=== PATIENT | male | born 1970 | race Caucasian/White ===

== ENCOUNTER 2019-09-05 15:12 | Emergency (ER) | payer BC ==
--- NOTE | 2019-09-05 15:48 | EDM.PDOC ---
ED HPI GENERAL MEDICAL PROBLEM - General Chief Complaint: General Stated Complaint: LT LEG/ARM SWELLING AND NUMBNESS Time Seen by Provider: 09/05/19 15:23 Source of Information: Reports: Patient, Significant Other () History Limitations: Reports: No Limitations - History of Present Illness INITIAL COMMENTS - FREE TEXT/NARRATIVE: Patient is a 48-year-old male who presents to the ED for the evaluation of unilateral leg swelling. 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 Patient states it is not painful, he did not even notice the swelling, he states that it was that noticed the swelling. He states that it does seem to worsens with sitting. He states there is some numbness/tingling associated with this, he also notes that he has been having some numbness and tingling into his left arm as well, this just started today. But he attributes this to his neck pain. Patient denies any sort of history of blood clots or other issues. Further denies any other fever/chills, cough/shortness of breath, nausea/vomiting/diarrhea, or pain anywhere else in his body. Left Leg Pain Score (Numeric/FACES): 2 - Related Data Allergies Allergy/AdvReac Type Severity Reaction Status Date / Time No Known Allergies Allergy Verified 09/05/19 15:23 Home Meds: Home Meds predniSONE 20 mg PO ASDIRECTED #15 tab 09/05/19 [Rx] Past Medical History - Past Health History Medical/Surgical History: Denies Medical/Surgical History - Infectious Disease History Infectious Disease History: Reports: Chicken Pox Social & Family History - Tobacco Use Smoking Status *Q: Never Smoker Second Hand Smoke Exposure: No - Caffeine Use Caffeine Use: Reports: Soda - Recreational Drug Use Recreational Drug Use: No ED ROS GENERAL - Review of Systems Review Of Systems: Comprehensive ROS is negative, except as noted in HPI. ED EXAM, GENERAL - Physical Exam Exam: See Below Exam Limited By: No Limitations General Appearance: Alert, WD/WN, No Apparent Distress Eye Exam: Bilateral Eye: EOMI, Normal Inspection, PERRL Respiratory/Chest: No Respiratory Distress, Lungs Clear, Normal Breath Sounds, No Accessory Muscle Use, Chest Non-Tender Cardiovascular: Normal Peripheral Pulses, Regular Rate, Rhythm, No Murmur Peripheral Pulses: 3+: Dorsalis Pedis (L), Dorsalis Pedis (R) Extremities: Normal Inspection, Normal Range of Motion, Non-Tender, No Pedal Edema, Normal Capillary Refill. No: Huseyin's Sign Neurological: Alert, Oriented, CN II-XII Intact (grossly), Normal Cognition, No Motor/Sensory Deficits Psychiatric: Normal Affect, Normal Mood Skin Exam: Warm, Dry, Intact, Normal Color, No Rash Course - Vital Signs Last Recorded V/S: Last Vital Signs Temp 98.8 F 09/05/19 15:24 Pulse 74 09/05/19 15:24 Resp 16 09/05/19 15:24 BP 163/98 H 09/05/19 15:24 Pulse Ox 98 09/05/19 15:24 - Re-Assessments/Exams Free Text/Narrative Re-Assessment/Exam: 09/05/19 15:47 Patient presents to the ED for the evaluation of his unilateral left lower leg swelling. patient and his are specifically worried about a blood clot, I will order an ultrasound to rule this out, however I do believe this is more indicative of dependent edema for the swelling, with possible sciatic involvement due to the numbness and tingling. I do believe the patient's left arm numbness and tingling originates from his cervical spine. 09/05/19 17:52 Ultrasound demonstrates no evidence of a DVT within the left lower extremity or right common femoral vein, there is slight stasis of flow within the left popliteal vein as described above, raising the possibility of venous insufficiency, which could be attributing to his leg swelling. Departure - Departure Time of Disposition: 17:53 Disposition: Home, Self-Care 01 Condition: Good Clinical Impression: Venous stasis of lower extremity, Numbness and tingling in left arm, Neck pain - Discharge Information *PRESCRIPTION DRUG MONITORING PROGRAM REVIEWED*: No *COPY OF PRESCRIPTION DRUG MONITORING REPORT IN PATIENT ROGELIO: No Instructions: Radicular Pain, Neck Exercises Referrals: PCP,None [Primary Care Provider] - Forms: ED Department Discharge Additional Instructions: You were evaluated in the ER today regarding your left leg swelling, and left arm numbness and tingling. An ultrasound was performed, demonstrates no sign of a DVT, but there is slower blood flow within the left leg, which could be attributing to the swelling that you are appreciating. 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 You can also try to elevate the legs when you get home at night, this also will alleviate some the swelling. The pain in your upper arm, is most likely radiating from your neck issue. You have been started on a prescription called prednisone, please take as directed, this will take care of most of the numbness and tingling if there is a pinched nerve or other disc issues in your neck. Please return to the ER at any time if your symptoms change or worsen. Sepsis Event Note (ED) - Evaluation Sepsis Screening Result: No Definite Risk - Focused Exam Vital Signs: Vital Signs Temp Pulse Resp BP Pulse Ox 09/05/19 15:24 98.8 F 74 16 163/98 H 98
--- NOTE | 2019-09-05 17:38 | US ---
Left lower extremity deep venous ultrasound: Duplex and color Doppler imaging was obtained of the left common femoral, proximal greater saphenous, superficial femoral, popliteal, posterior tibial and peroneal veins. Right common femoral vein was also evaluated. Findings: Normal phasic flow, augmentation and compression is seen. Slight stasis of blood flow is noted within the left popliteal vein suggesting the possibility of venous insufficiency. Impression: 1. No evidence of deep venous thrombosis within the left lower extremity or right common femoral vein. 2. Slight stasis of flow within the left popliteal vein as described above. Diagnostic code #2 This report was dictated in [facility]T
== END 2019-09-05 18:05 | disposition home or self-care (01) ==
LOC: JD.ED 15:12
DX: I87.8 Other specified disorders of veins (principal); R20.0 Anesthesia of skin; M54.2 Cervicalgia
CPT/HCPCS: 93971-26-LT; 93971-LT; 99282; 99283-25